=== PATIENT | female | born 1980 | race Caucasian/White ===

== ENCOUNTER 2016-10-03 03:29 | Emergency (ER) | payer OTHER ==
--- NOTE | 2016-10-03 03:51 | PROVIDER DOCUMENTATION ---
HPI-Chest Pain - General Chief Complaint: Chest Pain Stated Complaint: chest pain Time Seen by Provider: 10/03/16 03:33 Source: patient Allergies/Adverse Reactions: Patient Allergies Allergy/AdvReac Type Severity Reaction Status Date / Time Gadolinium-Containing Allergy SHORTNESS Verified 10/03/16 03:34 Contrast Medi OF BREATH iodine AdvReac NAUSEA/VOMI Verified 10/03/16 03:34 TING oxycodone HCl * AdvReac NAUSEA/VOMI Verified 10/03/16 03:34 [From OxyContin] TING Home Medications: Home Medication List Medication Instructions Recorded Confirmed Last Taken Type Alprazolam [Xanax] 0.5 tab PO PRN PRN 03/09/14 10/03/16 03/08/14 21:00 History Armodafinil [Nuvigil] 50 mg PO DAILY 03/09/14 10/03/16 03/09/14 07:00 History Atenolol 25 mg PO DAILY 03/09/14 10/03/16 03/08/14 21:00 History Baclofen 10 mg PO PRN PRN 03/09/14 10/03/16 03/08/14 21:00 History Escitalopram Oxalate [Lexapro] 10 mg PO DAILY 03/09/14 10/03/16 03/08/14 21:00 History Hydrocodone Bit/Acetaminophen 0.5 tab PO PRN PRN 03/09/14 10/03/16 03/02/14 History [Hydrocodon-Acetaminoph 7.5-325] Levothyroxine Sodium [Tirosint] 50 mcg PO DAILY 03/09/14 10/03/16 03/09/14 06: 00 History Acetaminophen/Caff/Dihydrocod 1 each PO DIRECTED 10/03/16 10/03/16 Unknown History [Trezix 16-320.5-30 mg Capsule] Albuterol Sulfate [Proventil Hfa] 6.7 gm IH DIRECTED 10/03/16 10/03/16 Unknown History Budesonide/Formoterol Fumarate 10.2 gm IH BID 10/03/16 10/03/16 Unknown History [Symbicort 160-4.5 Mcg Inhaler] Duloxetine [Cymbalta] 60 mg PO DAILY 10/03/16 10/03/16 Unknown History Esomeprazole Magnesium 40 mg PO DAILY 10/03/16 10/03/16 Unknown History Fexofenadine [Khushbu] 180 mg PO DAILY 10/03/16 10/03/16 Unknown History Melatonin 3 mg PO QHS 10/03/16 10/03/16 Unknown History Rosuvastatin Calcium 20 mg PO DAILY 10/03/16 10/03/16 Unknown History Trazodone HCl 50 mg PO HS 10/03/16 10/03/16 Unknown History - History of Present Illness-CP Location: reports: epigastric Chest Pain Radiation: reports: no radiation, shoulders Quality of Pain: reports: dull Severity in ED: mild Onset/Duration: 1/2 hour ago Context/Activities at Onset: reports: moderate activity Modifying Factors: improves with: antacids Associated Symptoms: reports: abdominal pain Nitro Today/Relief: no nitro taken today Aspirin Treatment Today: no aspirin today Prior Chest Pain/Cardiac Workup: reports: no prior chest pain Similar Symptoms Previously?: Yes Recently Seen Here or By Another Healthcare Provider: Yes Review of Systems - Adult - REVIEW OF SYSTEMS - ADULT Constitutional: reports: no symptoms reported Eyes: reports: no symptoms reported Ears, Nose, Mouth & Throat: reports: no symptoms reported Cardiovascular: reports: no symptoms reported Respiratory: reports: no symptoms reported Gastrointestinal: reports: no symptoms reported Genitourinary: reports: no symptoms reported Musculoskeletal: reports: no symptoms reported Integumentary: reports: no symptoms reported Neurological: reports: no symptoms reported Psychiatric: reports: no symptoms reported Endocrine: reports: no symptoms reported Hematologic/Lymphatic: reports: no symptoms reported Allergic/Immunologic: reports: no symptoms reported All Other Systems: Reviewed and Negative Past History - Adult - PAST MEDICAL HISTORY-ADULT Review of Records: reports: Old Records Reviewed, Nursing Assessment Review, Medications Reviewed, Social history reviewed & non-contributory. Major Childhood Illnesses: reports: denies history Cardiovascular: reports: heart valve problem (MVP), other (Chiang tachycardia) Respiratory: reports: asthma Gastrointestinal: reports: denies history Obstetrical/Gynecological: reports: denies history Genitourinary: reports: denies history Musculoskeletal: reports: denies history Neurological: reports: denies history Psychiatric: reports: depression Endocrine/Immune: reports: denies history Other Conditions: reports: denies history - PRIOR SURGERIES/PROCEDURES Surgical/Procedure History: reports: appendectomy - FAMILY HISTORY Family History: reviewed, not pertinent Physical Exam-General - PHYSICAL EXAM-ADULT Initial Vital Signs Reviewed: Yes - CONSTITUTIONAL General Appearance: appears well, alert - EYES Eyes: PERRL/EOMI - HEAD, EARS, NOSE, MOUTH & THROAT HENMT: normocephalic/atraumatic - NECK Neck: non-tender - RESPIRATORY Respiratory: lungs clear - CARDIOVASCULAR Cardiovascular: normal peripheral pulses, regular rate, rhythm - CHEST (BREASTS) Chest/Breast: no masses/lumps - GASTROINTESTINAL (ABDOMEN) Abdominal Exam: normal bowel sounds - GENITOURINARY Female Genitalia/Pelvic Exam: deferred - LYMPHATIC Lymphatic: no adenopathy - MUSCULOSKELETAL Back Exam: normal inspection Extremity: normal gait - SKIN Integumentary: warm/dry - NEUROLOGIC Neurologic: multi sensor operator II-XII nml as tested - PSYCHIATRIC Psych/Mental Status: normal mood/affect Departure - Departure Time of Disposition Order: 05:30 DIAGNOSIS: Cholelithiasis Disposition: HOME 01 Certified Medical Emergency: Emergent Condition: Stable
[2016-10-03 03:54] LABS: MANUAL DIFF NEEDED? NO
[2016-10-03 04:08] LABS: BASO% 0.2 % (0.0-0.8); EOS# 0.12 X1000 (0.0-0.7); EOS% 1.4 % (0.0-10.0); HEMATOCRIT 35.7 % (37.0-47.0); HEMOGLOBIN 12.2 g/dL (12.0-16.0); IMM GRAN# 0.01 X1000 (0.0-0.04); IMM GRAN% 0.1 % (0.0-0.5); LYMPH# 2.74 X1000 (1.2-3.4); LYMPH% 32.5 % (20.5-51.1); MCH 31.7 PG (27-31); MCHC 34.2 g/dL (33-37); MCV 92.7 FL (81-99); MONO# 0.51 X1000 (0.11-0.59); MPV 9.3 FL (7.4-10.4); NEUT% 59.8 % (42.2-75.2); PLT 185 X1000 (130-400); RBC 3.85 XMIL (4.2-5.4)
[2016-10-03 04:12] LABS: INR 0.91 (0.86-1.15); PROTIME 12.6 Seconds (12.1-15.5)
[2016-10-03 04:13] LABS: PTT PL 27.2 Seconds (22.6-43.9)
[2016-10-03 04:17] LABS: URINE SOURCE CLEAN CATCH
[2016-10-03 04:42] LABS: AGAP 14; ALBUMIN 4.2 g/dL (3.5-5.0); ALKALINE PHOSPHATASE 58 U/L (32-104); AMYLASE 41 U/L (20-200); BUN 19 mg/dL (8-22); CALCIUM 9.4 mg/dL (8.8-10.2); CHLORIDE 99 mmol/L (98-107); CK PROFILE 92 U/L (24-173); COSMO 273; GOT 35 U/L (10-30); GPT 32 U/L (10-36); LIPASE 31 U/L (13-60); POTASSIUM 3.8 mmol/L (3.5-5.1); SODIUM 135 mmol/L (136-145); TCO2 22 mmol/L (25-35); TOTAL PROTEIN 6.4 g/dL (6.3-8.3)
[2016-10-03 05:36] VITALS: BP 102/58
[2016-10-03 05:41] LABS: BILIRUBIN URINE NEGATIVE (NEGATIVE); BLOOD URINE NEGATIVE (NEGATIVE); CLARITY CLEAR (CLEAR); COLOR YELLOW; GLUCOSE URINE NEGATIVE (NEGATIVE); LEUKOCYTES URINE NEGATIVE (NEGATIVE); NITRITE URINE NEGATIVE (NEGATIVE); PROTEIN URINE NEGATIVE (NEGATIVE); SP GRAVITY URINE 1.025; UROBILINOGEN URINE NORMAL
[2016-10-03 05:42] LABS: URINE CRYSTAL CA OXALATE PRESENT /HPF; URINE CULTURE PL NEEDED? YES; URINE EPITHELIAL CELLS <10 /HPF (<10); URINE RBC <10 /HPF (<10); URINE WBC <10 /HPF (<10)
--- NOTE | 2016-10-03 05:47 | EKG Report ---
Test Performed on : 10/03/2016 03:55:29 AM Test Reason : CHEST PAIN Blood Pressure : / mmHG Vent. Rate : 067 BPM Atrial Rate : 067 BPM P-R Int : 206 ms QRS Dur : 104 ms QT Int : 430 ms P-R-T Axes : 056 045 027 degrees QTc Int : 454 ms Normal sinus rhythm. Normal ECG No previous ECGs available Unconfirmed Result
--- NOTE | 2016-10-03 12:54 | Diag Imaging Result Document ---
PROCEDURE NAME: THORAX/ABDOMEN/PELVIS W/O CONT - 10/03/2016 CT THORAX WITHOUT CONTRAST: TECHNIQUE: No contrast administered per request of the referring provider. According to the technologist, the patient has a history of allergy to intravenous contrast. A dose reduction protocol was used. No comparison exam. FINDINGS: The lungs appear clear. There is no pleural effusion or pneumothorax identified. There is no mediastinal hematoma or pericardial fluid identified. There are no abnormally enlarged mediastinal lymph nodes identified. The visualized bony structures appear intact. IMPRESSION: No evidence of acute disease. No evidence of injury to the thorax. CT CERVICAL SPINE WITHOUT CONTRAST: TECHNIQUE: No contrast administered per request of the referring provider. According to the technologist, the patient has a history of allergy to intravenous contrast. A dose reduction protocol was used. No comparison exam. FINDINGS: There are no substantial abnormalities of the liver, spleen, adrenal glands, or pancreas identified. There are multiple gallstones in the gallbladder. There is no pericholecystic inflammation seen. There is a 1-cm fluid-density lesion at the mid right kidney which likely represent cyst. The bilateral kidneys are otherwise unremarkable. There is no hydronephrosis or perinephric edema identified. There is no evidence of bowel obstruction. There is no substantial bowel wall thickening identified. There is no peritoneal or retroperitoneal hematoma identified. There is no free air. There is a small amount of nonspecific low-density free fluid in the posterior pelvis. There is no other abnormal pelvic mass or fluid collection identified. The visualized bony structures appear intact. IMPRESSION: 1. No evidence of injury to the abdomen or pelvis. 2. Calcified gallstones in gallbladder. No pericholecystic inflammation. 3. A 1-cm low-density right renal lesion which likely represent cyst. A [employer] physician provided preliminary results at 4:53 a.m. on 10/03/2016.
== END 2016-10-03 05:36 | disposition home or self-care (01) ==
LOC: P.ED 03:29
DX: K80.20 Calculus of gallbladder without cholecystitis without obstruction (principal); R10.13 Epigastric pain; M25.519 Pain in unspecified shoulder; R07.9 Chest pain, unspecified; I34.1 Nonrheumatic mitral (valve) prolapse; J45.909 Unspecified asthma, uncomplicated; F32.9 Major depressive disorder, single episode, unspecified; Z79.899 Other long term (current) drug therapy; Z79.51 Long term (current) use of inhaled steroids
CPT/HCPCS: 71250; 74176; 80053; 81001; 81025; 82150; 82550; 83690; 83735; 83880; 84484; 85025; 85610; 85730; 87088; 93005; 99285

== ENCOUNTER 2016-10-10 14:58 | Emergency (ER) | payer OTHER ==
[2016-10-10 15:46] LABS: URINE CULTURE PL NEEDED? NO; URINE SOURCE CLEAN CATCH
[2016-10-10 15:52] LABS: BILIRUBIN URINE NEGATIVE (NEGATIVE); BLOOD URINE NEGATIVE (NEGATIVE); CLARITY CLEAR (CLEAR); COLOR YELLOW; GLUCOSE URINE NEGATIVE (NEGATIVE); LEUKOCYTES URINE NEGATIVE (NEGATIVE); NITRITE URINE NEGATIVE (NEGATIVE); PROTEIN URINE NEGATIVE (NEGATIVE); UROBILINOGEN URINE NORMAL
[2016-10-10 15:58] LABS: URINE EPITHELIAL CELLS <10 /HPF (<10)
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
[2016-10-10] MEDS ORDERED: NS 1,000 ML IV ONE (16:34)
[2016-10-10] MEDS ORDERED: ZOFRAN IV ONE (16:34)
[2016-10-10] MEDS ORDERED: OFIRMEV 1000 MG/ISOTONIC SOLN 100 ML IV ONE (16:35)
[2016-10-10 17:02] LABS: MANUAL DIFF NEEDED? NO
[2016-10-10 17:09] LABS: BASO% 0.3 % (0.0-0.8); EOS# 0.08 X1000 (0.0-0.7); EOS% 1.1 % (0.0-10.0); HEMATOCRIT 39.3 % (37.0-47.0); HEMOGLOBIN 13.2 g/dL (12.0-16.0); IMM GRAN# 0.01 X1000 (0.0-0.04); IMM GRAN% 0.1 % (0.0-0.5); LYMPH# 2.11 X1000 (1.2-3.4); LYMPH% 30.3 % (20.5-51.1); MCH 31.4 PG (27-31); MCHC 33.6 g/dL (33-37); MCV 93.6 FL (81-99); MONO# 0.41 X1000 (0.11-0.59); MONO% 5.9 % (1.7-9.3); MPV 9.2 FL (7.4-10.4); NEUT% 62.3 % (42.2-75.2); PLT 200 X1000 (130-400)
[2016-10-10 17:29] LABS: AGAP 10; ALBUMIN 4.6 g/dL (3.5-5.0); ALKALINE PHOSPHATASE 59 U/L (32-104); AMYLASE 46 U/L (20-200); BUN 14 mg/dL (8-22); CALCIUM 9.6 mg/dL (8.8-10.2); CHLORIDE 101 mmol/L (98-107); COSMO 275; GOT 20 U/L (10-30); GPT 23 U/L (10-36); LIPASE 29 U/L (13-60); POTASSIUM 3.9 mmol/L (3.5-5.1); SODIUM 138 mmol/L (136-145); TCO2 27 mmol/L (25-35); TOTAL PROTEIN 7.3 g/dL (6.3-8.3)
[2016-10-10 19:42] VITALS: BP 112/70
--- NOTE | 2016-10-11 08:02 | Diag Imaging Result Document ---
PROCEDURE NAME: FLAT/UPRIGHT ABD/1 VIEW CHEST - 10/10/2016 FRONTAL AND LATERAL CHEST, FOUR VIEWS: COMPARISON: Chest is compared to 11/17/2015. FINDINGS: The lungs are well expanded. The heart is not enlarged. No pneumonia. No free air beneath the diaphragm. There is stool throughout the colon. No organomegaly. No foreign body. No abnormal abdominal or pelvic calcifications. IMPRESSION: Constipation
== END 2016-10-10 19:40 | disposition home or self-care (01) ==
LOC: P.ED 14:58
DX: K58.0 Irritable bowel syndrome with diarrhea (principal); R10.12 Left upper quadrant pain; R50.9 Fever, unspecified; R53.83 Other fatigue; R11.0 Nausea; I34.1 Nonrheumatic mitral (valve) prolapse; Q79.6 Ehlers-Danlos syndromes; F32.9 Major depressive disorder, single episode, unspecified; K59.00 Constipation, unspecified; Z79.899 Other long term (current) drug therapy; Z79.51 Long term (current) use of inhaled steroids
CPT/HCPCS: 74022; 80053; 81001; 81025; 82150; 83690; 84703; 85025; 96361; 96374; 96375; J0131; J2405; J7030